=== PATIENT | female | born 1970 | race Caucasian/White ===

== ENCOUNTER 2021-10-10 16:55 | Inpatient (IN) | payer MEDICAID ==
--- NOTE | 2021-10-11 07:45 | History and Physical Report ---
GP History & Physical - History of Present Illness Date of admission: 10/10/21 Date of Examination: 10/11/21 Reason for Admission: Danger to self, Danger to others Chief Complaint: Suicvidal ideation History of Present Illness: The patient is a 51 year old female with history of Schizoaffective, and PTSD who was admitted from [facility] on 1012 for for suicidal ideation/ attempt via cutting. In my interview with the patient, she is calm and oriented x 3 and withdrawn. The patient states she was feeling suicidal " I was told I was lying so I pulled out the knife and cut myself." She endorses depression stating " I don't want to live " and reports plan of overdosing on pills; she also reports feeling homicidal " because I was thrown out of the home. " The patient reports having auditory and visual hallucination " voices telling me to kill myself, cut and I'm seeing shadows." PAST PSYCHIATRIC HISTORY Diagnoses: Schizoaffective, PTSD Suicide attempts or Self-harm behavior: Yes/ cutter Prior psychiatric hospitalizations: Yes Substance Abuse history: Denies Previous psychiatric medications tried: so many Outpatient treatment: Yes PAST MEDICAL HISTORY: unknown Family Psychiatric History: None reported or documented SOCIAL HISTORY Marital Status: Single Living Arrangements:Lives in a care home Employment Status: Disabled Access to guns/weapons:Denies Education: 2 year college History of Abuse: Denies Legal History: Unknown REVIEW OF SYSTEMS Constitutional: Negative for weight loss ENT: Negative for stridor Respiratory: Negative for cough or hemoptysis All other systems reviewed and are negative MENTAL STATUS EXAMINATION General Appearance and Behavior: Age appropriate, good hygiene, wearing appropriate clothes, good eye contact, cooperative with questioning Cooperation: Participating/engaged Psychomotor Behavior: unremarkable and within normal limits Mood:"Depressed" Affect and affective range: congruent with mood Thought Process:goal directed Thought Content: Suicidal Speech: Normal volume, Regular rate and rhythm. Intellectual Functioning: Average Suicidal Ideation: Yes Homicidal Ideation: Yes Hallucinations: Auditory/Visual Delusions: None elicited Impulse Control: Limited Insight and Judgment: limited insight and poor judgment Memory: Normal Attention: Normal Orientation: Alert, oriented. Assessment and Plan (1)Schizoaffective disorder Treatment Plan Patient admitted for inpatient psychiatric evaluation, medication adjustment and close monitoring The patient's behavior, mood, sleep and appetite will be closely monitored. Patient enrolled in individual and group therapeutic sessions and encouraged to attend. Patient provided with a safe and structured environment. Patient's physical health needs will be addressed by the Hospitalist. Hospitalist Consulted Labs including CBC, CMP, Lipid profile and Hemoglobin A1C levels ordered for baseline reference Social Assessment will be completed and the Radio Division Officer will work with patient and family to ensure a suitable and safe disposition Medication adjustment will be made as clinically indicated Continue home medications Usual Wellness Denominational/Preservation: - Start Trazodone 50 mg po QHS & 50 mg po QHS PRN between 10 PM & 2 AM for insomnia - Start Melatonin 5 mg po QHS to promote circadian rhythm The patient agreed on the treatment plan, understood the risk, benefit, alternative treatment, potential consequence of no treatment, and gave informed consent. Estimated days:7 Post hospital care: primary care provider, psychiatric provider Case staffed with Dr. Sandra Legal Status: Involuntary Reaction to Hospitalization: Accepting Medications and Allergies Allergies Allergy/AdvReac Type Severity Reaction Status Date / Time hydromorphone [From Dilaudid] AdvReac Unknown Verified 10/10/21 17:32 lorazepam [From Ativan] AdvReac Unknown Verified 10/10/21 17:32 morphine AdvReac Unknown Verified 10/10/21 17:32 Home Medications Medication Instructions Recorded Confirmed Last Taken Type ARIPiprazole [Abilify Maintena] 400 mg IM QMONTH 10/11/21 10/11/21 Unknown History ARIPiprazole [Aripiprazole] 10 mg PO PC 10/11/21 10/11/21 Unknown History AtorvaSTATin [Lipitor] 10 mg PO QHS 10/11/21 10/11/21 Unknown History Benztropine [Cogentin] 1 mg PO BID 10/11/21 10/11/21 Unknown History Cannabidiol (Cbd) [Epidiolex] 6 ml PO BID 10/11/21 10/11/21 Unknown History Cetirizine HCl [Allergy] 10 mg PO DAILY 10/11/21 10/11/21 Unknown History Cyanocobalamin/Folic Acid [Vitamin 1,000 mcg PO DAILY 10/11/21 10/11/21 Unknown History [id number] Acid Tablet] DULoxetine [Cymbalta] 30 mg PO BID 10/11/21 10/11/21 Unknown History Ergocalciferol [Vitamin D2] 1 cap PO QWEEK 10/11/21 10/11/21 Unknown History Fluticasone/Salmeterol [Advair 1 puff IH BID 10/11/21 10/11/21 Unknown History Diskus 250-50 mcg] Gabapentin 300 mg PO TID 10/11/21 10/11/21 Unknown History Lacosamide [Vimpat] 20 mg PO BID 10/11/21 10/11/21 Unknown History Metformin HCl [metFORMIN] 1,000 mg PO BID 10/11/21 10/11/21 Unknown History Multivitamin [Multiple Vitamins] 1 each PO DAILY 10/11/21 10/11/21 Unknown History cloZAPine [Clozapine] 50 mg PO HS 10/11/21 10/11/21 Unknown History lamoTRIgine [Lamictal] 50 mg PO BID 10/11/21 10/11/21 Unknown History levETIRAcetam [Keppra TAB] 2 tab PO BID 10/11/21 10/11/21 Unknown History lisinopriL [Lisinopril] 10 mg PO DAILY 10/11/21 10/11/21 Unknown History traZODone [Desyrel] 100 mg PO QHS 10/11/21 10/11/21 Unknown History Results - Results Labs/Vitals: Last Vital Signs Temp 98.2 F 10/10/21 20:00 Pulse 86 10/10/21 20:00 Resp 13 10/10/21 20:00 BP 87/57 10/10/21 20:00 Pulse Ox 97 10/10/21 20:00 Physical Examination - Constitutional Vitals: Vital Signs Temp Pulse Resp BP Pulse Ox 98.2 F 86 13 87/57 97 10/10/21 20:00 10/10/21 20:00 10/10/21 20:00 10/10/21 20:00 10/10/21 20:00 Temperature -Last 24 Hours Temperature 98.2 F Mental Status Exam - Vital signs Last Vital Signs Temp 98.2 F 10/10/21 20:00 Pulse 86 10/10/21 20:00 Resp 13 10/10/21 20:00 BP 87/57 10/10/21 20:00 Pulse Ox 97 10/10/21 20:00 Physician Certification - Certification Statement Physician Certification Statement: This is an acknowledgement statement that MAILE JONES is a 51 year old F who requires inpatient psychiatric admission for treatment which could reasonably be expected to improve the patient's condition for Estimated period of time patient will need to remain in the hospital: [ ] Plan for post-hospital care: [ ]
[2021-10-11] MEDS ORDERED: LACOSAMIDE 10 MG/ML PO SCH (10:00)
[2021-10-11] MEDS ORDERED: FOLIC ACID PO SCH (10:00)
[2021-10-11] MEDS ORDERED: NON-FORMULARY EACH (Multivitamin [Multiple Vitamins] 1 EACH Tablet) PO SCH (10:00)
[2021-10-11] MEDS ORDERED: NON-FORMULARY EACH (Levetiracetam [Keppra Tab] 1,000 MG Tablet) PO SCH (10:00)
[2021-10-11] MEDS ORDERED: CANNABIDIOL 100 MG/ML PO SCH (10:00)
[2021-10-11] MEDS ORDERED: CYANOCOBALAMIN PO SCH (10:00)
[2021-10-11] MEDS ORDERED: [UNRECOGNIZED DRUG - OTHER] PO SCH (10:00)
[2021-10-11] MEDS ORDERED: NON-FORMULARY EACH (Metformin Hcl [Metformin] 1,000 MG Tablet) PO SCH (10:00)
[2021-10-11] MEDS ORDERED: LISINOPRIL 10 MG TAB PO SCH (11:00)
[2021-10-11] MEDS ORDERED: B COMPLEX W/VITAMIN C TAB PO SCH (11:00)
[2021-10-11] MEDS: CETIRIZINE 10 MG TAB PO SCH (11:11)
[2021-10-11] MEDS: DULoxetine 30 MG CAP PO SCH ×2 (11:11→21:24)
[2021-10-11] MEDS: metFORMIN 500 MG TAB PO SCH ×2 (11:11→17:20)
[2021-10-11] MEDS: levETIRAcetam 500 MG TAB PO SCH ×2 (11:11→21:24)
[2021-10-11] MEDS: BENZTROPINE 1 MG TAB PO SCH ×2 (11:11→21:24)
[2021-10-11] MEDS: lamoTRIgine 25 MG TAB PO SCH ×2 (11:11→21:23)
[2021-10-11] MEDS: CYANOCOBALAMIN (VIT B-12) 1000 MCG TAB PO SCH (11:11)
[2021-10-11] MEDS: MULTIVITAMINS ,THERAPEUTIC TAB PO SCH (11:11)
[2021-10-11] MEDS ORDERED: FLU VACC QUAD 2021-22(6MOS UP)/PF 60 MCG/0.5 ML SYRINGE IM ONE (12:00)
[2021-10-11] MEDS: ARIPiprazole 10 MG TAB PO SCH ×3 (13:27→17:20)
[2021-10-11] MEDS: hydrOXYzine PAMOATE 25 MG CAP PO PRN (13:38)
[2021-10-11] MEDS ORDERED: GABAPENTIN 300 MG CAP PO SCH (14:00)
--- NOTE | 2021-10-11 15:22 | Consultation ---
History of Present Illness - Reason for Consult Consult date: 10/11/21 Medical management - History of Present Illness Patient is a 51-year-old female with past medical history of schizophrenia, PTSD, depression seizure disorder, vitamin D deficiency, vitamin B12 deficiency, asthma, hyperlipidemia, and noninsulin-dependent diabetes who presented for psychiatric inpatient evaluation. Medicine was consulted for medical management. Past History Past Medical History: diabetes, hypertension, hyperlipidemia, seizures, other (Asthma, vitamin B12 deficiency, vitamin D deficiency, asthma, hypertension, hyperlipidemia, schizophrenia, PTSD, depression) Social history: Lives alone (Lives in snf), full code Medications and Allergies Allergies Allergy/AdvReac Type Severity Reaction Status Date / Time hydromorphone [From Dilaudid] AdvReac Unknown Verified 10/10/21 17:32 lorazepam [From Ativan] AdvReac Unknown Verified 10/10/21 17:32 morphine AdvReac Unknown Verified 10/10/21 17:32 Home Medications Medication Instructions Recorded Confirmed Last Taken Type ARIPiprazole [Abilify Maintena] 400 mg IM QMONTH 10/11/21 10/11/21 Unknown History ARIPiprazole [Aripiprazole] 10 mg PO PC 10/11/21 10/11/21 Unknown History AtorvaSTATin [Lipitor] 10 mg PO QHS 10/11/21 10/11/21 Unknown History Benztropine [Cogentin] 1 mg PO BID 10/11/21 10/11/21 Unknown History Cannabidiol (Cbd) [Epidiolex] 6 ml PO BID 10/11/21 10/11/21 Unknown History Cetirizine HCl [Allergy] 10 mg PO DAILY 10/11/21 10/11/21 Unknown History Cyanocobalamin/Folic Acid [Vitamin 1,000 mcg PO DAILY 10/11/21 10/11/21 Unknown History [id number] Acid Tablet] DULoxetine [Cymbalta] 30 mg PO BID 10/11/21 10/11/21 Unknown History Ergocalciferol [Vitamin D2] 1 cap PO QWEEK 10/11/21 10/11/21 Unknown History Fluticasone/Salmeterol [Advair 1 puff IH BID 10/11/21 10/11/21 Unknown History Diskus 250-50 mcg] Gabapentin 300 mg PO TID 10/11/21 10/11/21 Unknown History Lacosamide [Vimpat] 20 mg PO BID 10/11/21 10/11/21 Unknown History Metformin HCl [metFORMIN] 1,000 mg PO BID 10/11/21 10/11/21 Unknown History Multivitamin [Multiple Vitamins] 1 each PO DAILY 10/11/21 10/11/21 Unknown History cloZAPine [Clozapine] 50 mg PO HS 10/11/21 10/11/21 Unknown History lamoTRIgine [Lamictal] 50 mg PO BID 10/11/21 10/11/21 Unknown History levETIRAcetam [Keppra TAB] 2 tab PO BID 10/11/21 10/11/21 Unknown History lisinopriL [Lisinopril] 10 mg PO DAILY 10/11/21 10/11/21 Unknown History traZODone [Desyrel] 100 mg PO QHS 10/11/21 10/11/21 Unknown History Active Meds: Active Medications Aripiprazole (Aripiprazole 10 Mg Tab) 10 mg PO [facility] Last Admin: 10/11/21 13:27 Dose: 10 mg Documented by: Atorvastatin Calcium (Atorvastatin 10 Mg Tab) 10 mg PO QHS [facility] Benztropine Mesylate (Benztropine 1 Mg Tab) 1 mg PO BID [facility] Last Admin: 10/11/21 11:11 Dose: 1 mg Documented by: Cetirizine HCl (Cetirizine 10 Mg Tab) 10 mg PO DAILY [facility] Last Admin: 10/11/21 11:11 Dose: 10 mg Documented by: Cyanocobalamin (Cyanocobalamin (Vit B-12) 1000 Mcg Tab) 1,000 mcg PO QDAY [facility] Last Admin: 10/11/21 11:11 Dose: 1,000 mcg Documented by: Duloxetine HCl (Duloxetine 30 Mg Cap) 30 mg PO BID [facility] Last Admin: 10/11/21 11:11 Dose: 30 mg Documented by: Ergocalciferol (Ergocalciferol (Vit D2) 50,000 Unit Cap) unit PO QWEEK [facility] Hydroxyzine Pamoate (Hydroxyzine Pamoate 50 Mg Cap) 50 mg PO Q6H PRN PRN Reason: Anxiety Last Admin: 10/11/21 13:38 Dose: 50 mg Documented by: Hydroxyzine Pamoate (Hydroxyzine Pamoate 25 Mg Cap) 25 mg PO Q6H PRN PRN Reason: Anxiety Last Admin: 10/11/21 13:38 Dose: 25 mg Documented by: Lamotrigine (Lamotrigine 25 Mg Tab) 50 mg PO BID [facility] Last Admin: 10/11/21 11:11 Dose: 50 mg Documented by: Levetiracetam (Levetiracetam 500 Mg Tab) 1,000 mg PO BID [facility] Last Admin: 10/11/21 11:11 Dose: 1,000 mg Documented by: Metformin HCl (Metformin 500 Mg Tab) 1,000 mg PO BIDDIAB [facility] Last Admin: 10/11/21 11:11 Dose: 1,000 mg Documented by: Multivitamins (Multivitamins ,Therapeutic Tab) 1 each PO DAILY [facility] Last Admin: 10/11/21 11:11 Dose: 1 each Documented by: Trazodone HCl (Trazodone 100 Mg Tab) 100 mg PO QHS [facility] Review of Systems ROS unobtainable: due to mental status All systems: negative Exam - Constitutional Vitals: Temp Pulse Resp BP Pulse Ox 98.2 F 86 13 87/57 97 10/10/21 20:00 10/10/21 20:00 10/10/21 20:00 10/10/21 20:00 10/10/21 20:00 General appearance: Present: no acute distress, well-nourished - EENT Eyes: Present: PERRL, EOM intact ENT: hearing intact, dentition normal - Neck Neck: Present: supple, normal ROM - Respiratory Respiratory effort: normal Respiratory: bilateral: CTA - Cardiovascular Rhythm: regular Heart Sounds: Present: S1 & S2 - Extremities Extremities: no ischemia, pulses intact, pulses symmetrical, No edema, normal temperature, normal color, Full ROM Peripheral Pulses: within normal limits - Abdominal General gastrointestinal: Present: soft, non-tender, non-distended, normal bowel sounds Female genitourinary: Present: deferred - Rectal Rectal Exam: deferred - Integumentary Integumentary: Present: clear, warm, dry - Musculoskeletal Musculoskeletal: strength equal bilaterally - Psychiatric Psychiatric: cooperative - Neurologic Neurologic: CNII-XII intact, moves all extremities - Allied Health Allied health notes reviewed: nursing Assessment and Plan #Suicidal ideation #Suicide attempt #PTSD #Depression -Management per primary #Hypertension -Restart home lisinopril 10 mg daily #Seizure disorder -Restart home lacosamide 20 mg twice daily, lamotrigine 50 mg twice daily, Keppra 2 tabs twice daily #Hyperlipidemia -Restart home Lipitor 10 mg daily #Asthma -Restart home Advair 2 five 0-501 puff twice daily #[id number] diabetes type 2 -Restart home Metformin 1000 mg twice daily -Blood glucose goal [id number] while inpatient -Continue to monitor #Vitamin B12 deficiency -Restart home vitamin B12 1000 mg daily #Vitamin D deficiency -restart home ergocalciferol 1 cap weekly #Seasonal allergies #Sinusitis -Restart home cetirizine 10 mg daily Thank you for this interesting consult. We will continue to follow.
[2021-10-11] MEDS: traZODone 100 MG TAB PO SCH (21:23)
--- NOTE | 2021-10-12 08:32 | Progress Note ---
Subjective Date of service: 10/12/21 Subjective Comment: The patient is seen today, she continues to present with depressive mood. She endorses suicidal/homicidal ideation and auditory/visual hallucinations. REVIEW OF SYSTEMS Constitutional: Negative for weight loss ENT: Negative for stridor Respiratory: Negative for cough or hemoptysis All other systems reviewed and are negative MENTAL STATUS EXAMINATION General Appearance and Behavior: Age appropriate, good hygiene, wearing appropriate clothes, good eye contact, cooperative with questioning Cooperation: Participating/engaged Psychomotor Behavior: unremarkable and within normal limits Mood:"Depressed" Affect and affective range: congruent with mood Thought Process:goal directed Thought Content: Suicidal Speech: Normal volume, Regular rate and rhythm. Intellectual Functioning: Average Suicidal Ideation: Yes Homicidal Ideation: Yes Hallucinations: Auditory/Visual Delusions: None elicited Impulse Control: Limited Insight and Judgment: limited insight and poor judgment Memory: Normal Attention: Normal Orientation: Alert, oriented. Assessment and Plan (1)Schizoaffective disorder Treatment Plan Patient admitted for inpatient psychiatric evaluation, medication adjustment and close monitoring The patient's behavior, mood, sleep and appetite will be closely monitored. Patient enrolled in individual and group therapeutic sessions and encouraged to attend. Patient provided with a safe and structured environment. Patient's physical health needs will be addressed by the Hospitalist. Hospitalist Consulted Labs including CBC, CMP, Lipid profile and Hemoglobin A1C levels ordered for baseline reference Social Assessment will be completed and the Pipe And Test Supervisor will work with patient and family to ensure a suitable and safe disposition Medication adjustment will be made as clinically indicated Continue home medications Usual Wellness Tenriism/Preservation: - Start Trazodone 50 mg po QHS & 50 mg po QHS PRN between 10 PM & 2 AM for insomnia - Start Melatonin 5 mg po QHS to promote circadian rhythm The patient agreed on the treatment plan, understood the risk, benefit, alternative treatment, potential consequence of no treatment, and gave informed consent. Estimated days:6 Post hospital care: primary care provider, psychiatric provider Case staffed with Dr. Sandra Legal Status: Involuntary Reaction to Hospitalization: Accepting Medications and Allergies Medications and Allergies Allergies Allergy/AdvReac Type Severity Reaction Status Date / Time hydromorphone [From Dilaudid] AdvReac Unknown Verified 10/10/21 17:32 lorazepam [From Ativan] AdvReac Unknown Verified 10/10/21 17:32 morphine AdvReac Unknown Verified 10/10/21 17:32 Home Medications Medication Instructions Recorded Confirmed Last Taken Type ARIPiprazole [Abilify Maintena] 400 mg IM QMONTH 10/11/21 10/11/21 Unknown History ARIPiprazole [Aripiprazole] 10 mg PO PC 10/11/21 10/11/21 Unknown History AtorvaSTATin [Lipitor] 10 mg PO QHS 10/11/21 10/11/21 Unknown History Benztropine [Cogentin] 1 mg PO BID 10/11/21 10/11/21 Unknown History Cannabidiol (Cbd) [Epidiolex] 6 ml PO BID 10/11/21 10/11/21 Unknown History Cetirizine HCl [Allergy] 10 mg PO DAILY 10/11/21 10/11/21 Unknown History Cyanocobalamin/Folic Acid [Vitamin 1,000 mcg PO DAILY 10/11/21 10/11/21 Unknown History [id number] Acid Tablet] DULoxetine [Cymbalta] 30 mg PO BID 10/11/21 10/11/21 Unknown History Ergocalciferol [Vitamin D2] 1 cap PO QWEEK 10/11/21 10/11/21 Unknown History Fluticasone/Salmeterol [Advair 1 puff IH BID 10/11/21 10/11/21 Unknown History Diskus 250-50 mcg] Gabapentin 300 mg PO TID 10/11/21 10/11/21 Unknown History Lacosamide [Vimpat] 20 mg PO BID 10/11/21 10/11/21 Unknown History Metformin HCl [metFORMIN] 1,000 mg PO BID 10/11/21 10/11/21 Unknown History Multivitamin [Multiple Vitamins] 1 each PO DAILY 10/11/21 10/11/21 Unknown History cloZAPine [Clozapine] 50 mg PO HS 10/11/21 10/11/21 Unknown History lamoTRIgine [Lamictal] 50 mg PO BID 10/11/21 10/11/21 Unknown History levETIRAcetam [Keppra TAB] 2 tab PO BID 10/11/21 10/11/21 Unknown History lisinopriL [Lisinopril] 10 mg PO DAILY 10/11/21 10/11/21 Unknown History traZODone [Desyrel] 100 mg PO QHS 10/11/21 10/11/21 Unknown History Active Meds: Active Medications Aripiprazole (Aripiprazole 10 Mg Tab) 10 mg PO PC [facility] Last Admin: 10/11/21 17:20 Dose: 10 mg Documented by: Atorvastatin Calcium (Atorvastatin 10 Mg Tab) 10 mg PO QHS [facility] Last Admin: 10/11/21 21:23 Dose: 10 mg Documented by: Benztropine Mesylate (Benztropine 1 Mg Tab) 1 mg PO BID [facility] Last Admin: 10/11/21 21:24 Dose: 1 mg Documented by: Cetirizine HCl (Cetirizine 10 Mg Tab) 10 mg PO DAILY [facility] Last Admin: 10/11/21 11:11 Dose: 10 mg Documented by: Cyanocobalamin (Cyanocobalamin (Vit B-12) 1000 Mcg Tab) 1,000 mcg PO QDAY [facility] Last Admin: 10/11/21 11:11 Dose: 1,000 mcg Documented by: Duloxetine HCl (Duloxetine 30 Mg Cap) 30 mg PO BID [facility] Last Admin: 10/11/21 21:24 Dose: 30 mg Documented by: Ergocalciferol (Ergocalciferol (Vit D2) 50,000 Unit Cap) unit PO QWEEK [facility] Hydroxyzine Pamoate (Hydroxyzine Pamoate 50 Mg Cap) 50 mg PO Q6H PRN PRN Reason: Anxiety Last Admin: 10/11/21 13:38 Dose: 50 mg Documented by: Hydroxyzine Pamoate (Hydroxyzine Pamoate 25 Mg Cap) 25 mg PO Q6H PRN PRN Reason: Anxiety Last Admin: 10/11/21 13:38 Dose: 25 mg Documented by: Lamotrigine (Lamotrigine 25 Mg Tab) 50 mg PO BID [facility] Last Admin: 10/11/21 21:23 Dose: 50 mg Documented by: Levetiracetam (Levetiracetam 500 Mg Tab) 1,000 mg PO BID [facility] Last Admin: 10/11/21 21:24 Dose: 1,000 mg Documented by: Metformin HCl (Metformin 500 Mg Tab) 1,000 mg PO BIDDIAB [facility] Last Admin: 10/11/21 17:20 Dose: 1,000 mg Documented by: Multivitamins (Multivitamins ,Therapeutic Tab) 1 each PO DAILY [facility] Last Admin: 10/11/21 11:11 Dose: 1 each Documented by: Trazodone HCl (Trazodone 100 Mg Tab) 100 mg PO QHS [facility] Last Admin: 10/11/21 21:23 Dose: 100 mg Documented by: Results - Results Labs/Vitals: Laboratory Last Values POC Glucose 90 mg/dL (70-105) 10/12/21 06:22 Last Vital Signs Temp 98.1 F 10/11/21 21:12 Pulse 79 10/11/21 21:12 Resp 16 10/11/21 21:12 BP 98/64 10/11/21 21:12 Pulse Ox 97 10/11/21 21:14
[2021-10-12 09:24] LABS: Hematocrit 38.1 % (30.3-42.9); Hemoglobin 12.2 gm/dl (10.1-14.3); Mean Corpuscular HGB Conc 32 % (30-34); Mean Corpuscular Volume 86 fl (79-97); Platelet Count 172 K/mm3 (140-440); Red Blood Count 4.41 M/mm3 (3.65-5.03); Red Cell Distribution Width 14.4 % (13.2-15.2)
[2021-10-12] MEDS: DULoxetine 30 MG CAP PO SCH ×2 (09:32→21:44)
[2021-10-12] MEDS: lamoTRIgine 25 MG TAB PO SCH ×2 (09:32→21:44)
[2021-10-12] MEDS: MULTIVITAMINS ,THERAPEUTIC TAB PO SCH (09:32)
[2021-10-12] MEDS: BENZTROPINE 1 MG TAB PO SCH ×2 (09:32→21:43)
[2021-10-12] MEDS: CYANOCOBALAMIN (VIT B-12) 1000 MCG TAB PO SCH (09:32)
[2021-10-12] MEDS: levETIRAcetam 500 MG TAB PO SCH ×2 (09:32→21:44)
[2021-10-12] MEDS: ARIPiprazole 10 MG TAB PO SCH ×3 (09:32→17:00)
[2021-10-12] MEDS: CETIRIZINE 10 MG TAB PO SCH (09:32)
[2021-10-12] MEDS: metFORMIN 500 MG TAB PO SCH ×2 (09:32→16:55)
[2021-10-12] MEDS: hydrOXYzine PAMOATE 25 MG CAP PO PRN ×2 (09:33→23:33)
[2021-10-12 09:45] LABS: Alanine Aminotransferase 14 units/L (7-56); BUN/Creatinine Ratio 25; Blood Urea Nitrogen 20 mg/dL (7-17); Chol/HDL Ratio 2.85 %; HDL Cholesterol 67 mg/dL (40-59); Hemolysis Index 6; LDL Cholesterol,Direct 108 mg/dL (50-130)
--- NOTE | 2021-10-12 15:57 | Progress Note ---
Assessment and Plan Assessment and plan: Patient is a 51-year-old female with past medical history of schizophrenia, PTSD, depression seizure disorder, vitamin D deficiency, vitamin B12 deficiency, asthma, hyperlipidemia, and noninsulin-dependent diabetes who presented for psychiatric inpatient evaluation. Medicine was consulted for medical management. #Suicidal ideation #Suicide attempt #PTSD #Depression -Management per primary #Hypertension -Continue home lisinopril 10 mg daily #Seizure disorder -Continue home lacosamide 20 mg twice daily, lamotrigine 50 mg twice daily, Keppra 2 tabs twice daily #Hyperlipidemia -R continue home Lipitor 10 mg daily #Asthma -Continue home Advair 2 five 0-501 puff twice daily #Dif-nxyscjq-cmblvxfeb diabetes type 2 -Continue home Metformin 1000 mg twice daily -Blood glucose goal [id number] while inpatient -Continue to monitor #Vitamin B12 deficiency -Continue home vitamin B12 1000 mg daily #Vitamin D deficiency -Continue home ergocalciferol 1 cap weekly #Seasonal allergies #Sinusitis -Continue home cetirizine 10 mg daily #Advanced care planning -Disease education conducted, care plan discussed, diagnoses discussed, prognosis discussed, and patient acknowledges understanding with care plan -time: +20 minutes We will continue to follow. Disposition Plan: Continue medical management Total Time Spent with Patient (Minutes): 25 minutes History Interval history: No acute events overnight. Hospitalist Physical - Constitutional Vitals: Temp Pulse Resp BP Pulse Ox 98.1 F 79 16 98/64 97 10/11/21 21:12 10/11/21 21:12 10/11/21 21:12 10/11/21 21:12 10/11/21 21:14 General appearance: Present: no acute distress, well-nourished - EENT Eyes: Present: PERRL ENT: hearing intact, clear oral mucosa - Neck Neck: Present: supple, normal ROM - Respiratory Respiratory effort: normal Respiratory: bilateral: CTA - Cardiovascular Rhythm: regular - Extremities Extremities: no ischemia, pulses intact, pulses symmetrical, No edema, normal temperature, normal color Peripheral Pulses: within normal limits - Abdominal General gastrointestinal: soft, non-tender, non-distended, normal bowel sounds - Integumentary Integumentary: Present: clear, warm, dry - Psychiatric Psychiatric: cooperative - Neurologic Neurologic: CNII-XII intact, moves all extremities Results - Labs CBC & Chem 7: 10/12/21 08:52 10/12/21 08:52 Labs: Laboratory Last Values WBC 3.7 K/mm3 (4.5-11.0) L 10/12/21 08:52 RBC 4.41 M/mm3 (3.65-5.03) 10/12/21 08:52 Hgb 12.2 gm/dl (10.1-14.3) 10/12/21 08:52 Hct 38.1 % (30.3-42.9) 10/12/21 08:52 MCV 86 fl (79-97) 10/12/21 08:52 MCH 28 pg (28-32) 10/12/21 08:52 MCHC 32 % (30-34) 10/12/21 08:52 RDW 14.4 % (13.2-15.2) 10/12/21 08:52 Plt Count 172 K/mm3 (140-440) 10/12/21 08:52 Sodium 138 mmol/L (137-145) 10/12/21 08:52 Potassium 4.1 mmol/L (3.6-5.0) 10/12/21 08:52 Chloride 98.3 mmol/L (98-107) 10/12/21 08:52 Carbon Dioxide 24 mmol/L (22-30) 10/12/21 08:52 Anion Gap 20 mmol/L 10/12/21 08:52 BUN 20 mg/dL (7-17) H 10/12/21 08:52 Creatinine 0.8 mg/dL (0.6-1.2) 10/12/21 08:52 Estimated GFR > 60 ml/min 10/12/21 08:52 BUN/Creatinine Ratio 25 % 10/12/21 08:52 Glucose 140 mg/dL (65-100) H 10/12/21 08:52 POC Glucose 90 mg/dL (70-105) 10/12/21 06:22 Calcium 9.0 mg/dL (8.4-10.2) 10/12/21 08:52 Total Bilirubin 0.30 mg/dL (0.1-1.2) 10/12/21 08:52 AST 13 units/L (5-40) 10/12/21 08:52 ALT 14 units/L (7-56) 10/12/21 08:52 Alkaline Phosphatase 114 units/L (35-129) 10/12/21 08:52 Total Protein 7.4 g/dL (6.3-8.2) 10/12/21 08:52 Albumin 4.0 g/dL (3.9-5) 10/12/21 08:52 Albumin/Globulin Ratio 1.2 % 10/12/21 08:52 Triglycerides 101 mg/dL (2-149) 10/12/21 08:52 Cholesterol 191 mg/dL (50-199) 10/12/21 08:52 LDL Cholesterol Direct 108 mg/dL (50-130) 10/12/21 08:52 HDL Cholesterol 67 mg/dL (40-59) H 10/12/21 08:52 Cholesterol/HDL Ratio 2.85 % 10/12/21 08:52 TSH 1.580 mlU/mL (0.270-4.200) 10/12/21 08:52 TSH 1.610 mlU/mL (0.270-4.200) 10/12/21 08:52 Forman/IV: Voiding Method Toilet Active Medications - Current Medications Current Medications: Generic Name Dose Route Start Last Admin Trade Name Freq PRN Reason Stop Dose Admin Aripiprazole 10 mg 10/11/21 10:00 10/12/21 13:46 Aripiprazole 10 Mg Tab PO 10 mg PC ANA Administration Atorvastatin Calcium 10 mg 10/11/21 22:00 10/11/21 21:23 Atorvastatin 10 Mg Tab PO 10 mg QHS ANA Administration Benztropine Mesylate 1 mg 10/11/21 10:00 10/12/21 09:32 Benztropine 1 Mg Tab PO 1 mg BID ANA Administration Cetirizine HCl 10 mg 10/11/21 11:00 10/12/21 09:32 Cetirizine 10 Mg Tab PO 10 mg DAILY ANA Administration Cyanocobalamin 1,000 mcg 10/11/21 11:00 10/12/21 09:32 Cyanocobalamin (Vit B-12) 1000 Mcg Tab PO 1,000 mcg QDAY ANA Administration Duloxetine HCl 30 mg 10/11/21 11:00 10/12/21 09:32 Duloxetine 30 Mg Cap PO 30 mg BID ANA Administration Ergocalciferol unit 10/11/21 10:00 Ergocalciferol (Vit D2) 50,000 Unit Cap PO QWEEK [facility] Hydroxyzine Pamoate 50 mg 10/11/21 13:15 10/12/21 09:33 Hydroxyzine Pamoate 50 Mg Cap PO 50 mg Q6H PRN Administration Anxiety Hydroxyzine Pamoate 25 mg 10/11/21 13:15 10/12/21 09:33 Hydroxyzine Pamoate 25 Mg Cap PO 25 mg Q6H PRN Administration Anxiety Lamotrigine 50 mg 10/11/21 11:00 10/12/21 09:32 Lamotrigine 25 Mg Tab PO 50 mg BID ANA Administration Levetiracetam 1,000 mg 10/11/21 11:00 10/12/21 09:32 Levetiracetam 500 Mg Tab PO 1,000 mg BID ANA Administration Metformin HCl 1,000 mg 10/11/21 11:30 10/12/21 09:32 Metformin 500 Mg Tab PO 1,000 mg BIDDIAB ANA Administration Multivitamins 1 each 10/11/21 11:00 10/12/21 09:32 Multivitamins ,Therapeutic Tab PO 1 each DAILY ANA Administration Trazodone HCl 100 mg 10/11/21 22:00 10/11/21 21:23 Trazodone 100 Mg Tab PO 100 mg QHS ANA Administration
[2021-10-12] MEDS: traZODone 100 MG TAB PO SCH (21:44)
[2021-10-13] MEDS: ARIPiprazole 10 MG TAB PO SCH (09:21)
[2021-10-13] MEDS: CYANOCOBALAMIN (VIT B-12) 1000 MCG TAB PO SCH (09:21)
[2021-10-13] MEDS: levETIRAcetam 500 MG TAB PO SCH ×2 (09:21→22:43)
[2021-10-13] MEDS: CETIRIZINE 10 MG TAB PO SCH (09:21)
[2021-10-13] MEDS: lamoTRIgine 25 MG TAB PO SCH ×2 (09:22→22:42)
[2021-10-13] MEDS: DULoxetine 30 MG CAP PO SCH ×2 (09:22→22:43)
[2021-10-13] MEDS: BENZTROPINE 1 MG TAB PO SCH ×2 (09:22→22:43)
[2021-10-13] MEDS: metFORMIN 500 MG TAB PO SCH (09:46)
[2021-10-13] MEDS: MULTIVITAMINS ,THERAPEUTIC TAB PO SCH (09:46)
--- NOTE | 2021-10-13 11:52 | Progress Note ---
Subjective Date of service: 10/13/21 Principal diagnosis: MDD Subjective Comment: The patient was seen today. She is irritable. She says she did not get all of her medications this morning. She is asking the speak to the SW and says she is pissed off. The patient has old superficial cuts to her left forearm. She says she cuts when she gets anxious. She says she's hearing "mumbo jurufinoo" but can't make it out. She initiall denies SI/HI. She then says "yea I am suicidal and I'll do whatever I can do." The patient says "I'm pissed about my meds." REVIEW OF SYSTEMS Constitutional: Negative for weight loss ENT: Negative for stridor Respiratory: Negative for cough or hemoptysis All other systems reviewed and are negative MENTAL STATUS EXAMINATION General Appearance and Behavior: Age appropriate, good hygiene, wearing appropriate clothes, good eye contact, cooperative with questioning Cooperation: Participating/engaged Psychomotor Behavior: unremarkable and within normal limits Mood: upset Affect and affective range: congruent with mood Thought Process:goal directed Thought Content: Suicidal Speech: Normal volume, Regular rate and rhythm. Intellectual Functioning: Average Suicidal Ideation: Denies Homicidal Ideation: Denies Hallucinations: Auditory Delusions: None elicited Impulse Control: Limited Insight and Judgment: limited insight and poor judgment Memory: Normal Attention: Normal Orientation: Alert, oriented. Assessment and Plan (1)Schizoaffective disorder Treatment Plan Patient admitted for inpatient psychiatric evaluation, medication adjustment and close monitoring The patient's behavior, mood, sleep and appetite will be closely monitored. Patient enrolled in individual and group therapeutic sessions and encouraged to attend. Patient provided with a safe and structured environment. Patient's physical health needs will be addressed by the Hospitalist. Hospitalist Consulted Labs including CBC, CMP, Lipid profile and Hemoglobin A1C levels ordered for [facility] reference Social Assessment will be completed and the [facility] will work with patient and family to ensure a suitable and safe disposition Medication adjustment will be made as clinically indicated Continue home medications Usual Wellness [facility]/Preservation: - Start Trazodone 50 mg po QHS & 50 mg po QHS PRN between 10 PM & 2 AM for insomnia - Start Melatonin 5 mg po QHS to promote circadian rhythm The patient agreed on the treatment plan, understood the risk, benefit, alternative treatment, potential consequence of no treatment, and gave informed consent. Estimated days:6 Post hospital care: primary care provider, psychiatric provider Case staffed with Dr. Sandra Medications and Allergies Allergies Allergy/AdvReac Type Severity Reaction Status Date / Time hydromorphone [From Dilaudid] AdvReac Unknown Verified 10/10/21 17:32 lorazepam [From Ativan] AdvReac Unknown Verified 10/10/21 17:32 morphine AdvReac Unknown Verified 10/10/21 17:32 Home Medications Medication Instructions Recorded Confirmed Last Taken Type ARIPiprazole [Abilify Maintena] 400 mg IM QMONTH 10/11/21 10/11/21 Unknown History ARIPiprazole [Aripiprazole] 10 mg PO PC 10/11/21 10/11/21 Unknown History AtorvaSTATin [Lipitor] 10 mg PO QHS 10/11/21 10/11/21 Unknown History Benztropine [Cogentin] 1 mg PO BID 10/11/21 10/11/21 Unknown History Cannabidiol (Cbd) [Epidiolex] 6 ml PO BID 10/11/21 10/11/21 Unknown History Cetirizine HCl [Allergy] 10 mg PO DAILY 10/11/21 10/11/21 Unknown History Cyanocobalamin/Folic Acid [Vitamin 1,000 mcg PO DAILY 10/11/21 10/11/21 Unknown History [id number] Acid Tablet] DULoxetine [Cymbalta] 30 mg PO BID 10/11/21 10/11/21 Unknown History Ergocalciferol [Vitamin D2] 1 cap PO QWEEK 10/11/21 10/11/21 Unknown History Fluticasone/Salmeterol [Advair 1 puff IH BID 10/11/21 10/11/21 Unknown History Diskus 250-50 mcg] Gabapentin 300 mg PO TID 10/11/21 10/11/21 Unknown History Lacosamide [Vimpat] 20 mg PO BID 10/11/21 10/11/21 Unknown History Metformin HCl [metFORMIN] 1,000 mg PO BID 10/11/21 10/11/21 Unknown History Multivitamin [Multiple Vitamins] 1 each PO DAILY 10/11/21 10/11/21 Unknown History cloZAPine [Clozapine] 50 mg PO HS 10/11/21 10/11/21 Unknown History lamoTRIgine [Lamictal] 50 mg PO BID 10/11/21 10/11/21 Unknown History levETIRAcetam [Keppra TAB] 2 tab PO BID 10/11/21 10/11/21 Unknown History lisinopriL [Lisinopril] 10 mg PO DAILY 10/11/21 10/11/21 Unknown History traZODone [Desyrel] 100 mg PO QHS 10/11/21 10/11/21 Unknown History Active Meds: Active Medications Aripiprazole (Aripiprazole 10 Mg Tab) 10 mg PO [facility] Last Admin: 10/13/21 09:21 Dose: 10 mg Documented by: Atorvastatin Calcium (Atorvastatin 10 Mg Tab) 10 mg PO QHS [facility] Last Admin: 10/12/21 21:43 Dose: 10 mg Documented by: Benztropine Mesylate (Benztropine 1 Mg Tab) 1 mg PO BID [facility] Last Admin: 10/13/21 09:22 Dose: 1 mg Documented by: Cetirizine HCl (Cetirizine 10 Mg Tab) 10 mg PO DAILY [facility] Last Admin: 10/13/21 09:21 Dose: 10 mg Documented by: Cyanocobalamin (Cyanocobalamin (Vit B-12) 1000 Mcg Tab) 1,000 mcg PO QDAY [facility] Last Admin: 10/13/21 09:21 Dose: 1,000 mcg Documented by: Duloxetine HCl (Duloxetine 30 Mg Cap) 30 mg PO BID [facility] Last Admin: 10/13/21 09:22 Dose: 30 mg Documented by: Ergocalciferol (Ergocalciferol (Vit D2) 50,000 Unit Cap) 50,000 unit PO [facility] Hydroxyzine Pamoate (Hydroxyzine Pamoate 50 Mg Cap) 50 mg PO Q6H PRN PRN Reason: Anxiety Last Admin: 10/13/21 09:46 Dose: 50 mg Documented by: Hydroxyzine Pamoate (Hydroxyzine Pamoate 25 Mg Cap) 25 mg PO Q6H PRN PRN Reason: Anxiety Last Admin: 10/12/21 23:33 Dose: 25 mg Documented by: Lamotrigine (Lamotrigine 25 Mg Tab) 50 mg PO BID [facility] Last Admin: 10/13/21 09:22 Dose: 50 mg Documented by: Levetiracetam (Levetiracetam 500 Mg Tab) 1,000 mg PO BID [facility] Last Admin: 10/13/21 09:21 Dose: 1,000 mg Documented by: Metformin HCl (Metformin 500 Mg Tab) 1,000 mg PO BIDDIAB [facility] Last Admin: 10/13/21 09:46 Dose: 1,000 mg Documented by: Multivitamins (Multivitamins ,Therapeutic Tab) 1 each PO DAILY [facility] Last Admin: 10/13/21 09:46 Dose: 1 each Documented by: Trazodone HCl (Trazodone 100 Mg Tab) 100 mg PO QHS [facility] Last Admin: 10/12/21 21:44 Dose: 100 mg Documented by: Results - Results Labs/Vitals: Laboratory Last Values WBC 3.7 K/mm3 (4.5-11.0) L 10/12/21 08:52 RBC 4.41 M/mm3 (3.65-5.03) 10/12/21 08:52 Hgb 12.2 gm/dl (10.1-14.3) 10/12/21 08:52 Hct 38.1 % (30.3-42.9) 10/12/21 08:52 MCV 86 fl (79-97) 10/12/21 08:52 MCH 28 pg (28-32) 10/12/21 08:52 MCHC 32 % (30-34) 10/12/21 08:52 RDW 14.4 % (13.2-15.2) 10/12/21 08:52 Plt Count 172 K/mm3 (140-440) 10/12/21 08:52 Sodium 138 mmol/L (137-145) 10/12/21 08:52 Potassium 4.1 mmol/L (3.6-5.0) 10/12/21 08:52 Chloride 98.3 mmol/L (98-107) 10/12/21 08:52 Carbon Dioxide 24 mmol/L (22-30) 10/12/21 08:52 Anion Gap 20 mmol/L 10/12/21 08:52 BUN 20 mg/dL (7-17) H 10/12/21 08:52 Creatinine 0.8 mg/dL (0.6-1.2) 10/12/21 08:52 Estimated GFR > 60 ml/min 10/12/21 08:52 BUN/Creatinine Ratio 25 % 10/12/21 08:52 Glucose 140 mg/dL (65-100) H 10/12/21 08:52 POC Glucose 77 mg/dL (70-105) 10/13/21 06:34 Calcium 9.0 mg/dL (8.4-10.2) 10/12/21 08:52 Total Bilirubin 0.30 mg/dL (0.1-1.2) 10/12/21 08:52 AST 13 units/L (5-40) 10/12/21 08:52 ALT 14 units/L (7-56) 10/12/21 08:52 Alkaline Phosphatase 114 units/L (35-129) 10/12/21 08:52 Total Protein 7.4 g/dL (6.3-8.2) 10/12/21 08:52 Albumin 4.0 g/dL (3.9-5) 10/12/21 08:52 Albumin/Globulin Ratio 1.2 % 10/12/21 08:52 Triglycerides 101 mg/dL (2-149) 10/12/21 08:52 Cholesterol 191 mg/dL (50-199) 10/12/21 08:52 LDL Cholesterol Direct 108 mg/dL (50-130) 10/12/21 08:52 HDL Cholesterol 67 mg/dL (40-59) H 10/12/21 08:52 Cholesterol/HDL Ratio 2.85 % 10/12/21 08:52 TSH 1.580 mlU/mL (0.270-4.200) 10/12/21 08:52 TSH 1.610 mlU/mL (0.270-4.200) 10/12/21 08:52 Last Vital Signs Temp 97.3 F L 10/12/21 22:00 Pulse 65 10/12/21 22:00 Resp 18 10/12/21 22:00 BP 112/72 10/12/21 22:00 Pulse Ox 98 10/12/21 22:00
--- NOTE | 2021-10-13 12:54 | Progress Note ---
Assessment and Plan Assessment and plan: Patient is a 51-year-old female with past medical history of schizophrenia, PTSD, depression seizure disorder, vitamin D deficiency, vitamin B12 deficiency, asthma, hyperlipidemia, and noninsulin-dependent diabetes who presented for psychiatric inpatient evaluation. Medicine was consulted for medical management. #Suicidal ideation #Suicide attempt #PTSD #Depression -Management per primary #Hypertension -Continue home lisinopril 10 mg daily #Seizure disorder -Continue home lacosamide 20 mg twice daily, lamotrigine 50 mg twice daily, Keppra 2 tabs twice daily #Hyperlipidemia -R continue home Lipitor 10 mg daily #Asthma -Continue home Advair 2 five 0-501 puff twice daily #Thc-[id number] diabetes type 2 -Continue home Metformin 1000 mg twice daily -Blood glucose goal [id number] while inpatient -Continue to monitor #Vitamin B12 deficiency -Continue home vitamin B12 1000 mg daily #Vitamin D deficiency -Continue home ergocalciferol 1 cap weekly #Seasonal allergies #Sinusitis -Continue home cetirizine 10 mg daily #Advanced care planning -Disease education conducted, care plan discussed, diagnoses discussed, prognosis discussed, and patient acknowledges understanding with care plan -time: +20 minutes Signing off today. Please do not hesitate to reach out should any questions arise. Disposition Plan: Continue medical management Total Time Spent with Patient (Minutes): 30 minutes History Interval history: No acute events overnight. Hospitalist Physical - Constitutional Vitals: Temp Pulse Resp BP Pulse Ox 97.3 F L 65 18 112/72 98 10/12/21 22:00 10/12/21 22:00 10/12/21 22:00 10/12/21 22:00 10/12/21 22:00 General appearance: Present: no acute distress, well-nourished - EENT Eyes: Present: PERRL, EOM intact ENT: hearing intact, clear oral mucosa - Neck Neck: Present: supple, normal ROM - Respiratory Respiratory effort: normal Respiratory: bilateral: CTA - Cardiovascular Rhythm: regular Heart Sounds: Present: S1 & S2 - Extremities Extremities: no ischemia, pulses intact, pulses symmetrical, No edema, normal temperature, normal color, Full ROM Peripheral Pulses: within normal limits - Abdominal General gastrointestinal: soft, non-tender, non-distended, normal bowel sounds - Integumentary Integumentary: Present: clear, warm - Psychiatric Psychiatric: cooperative, agitated - Neurologic Neurologic: CNII-XII intact - Allied Health Allied health notes reviewed: nursing Results - Labs CBC & Chem 7: 10/12/21 08:52 10/12/21 08:52 Labs: Laboratory Last Values WBC 3.7 K/mm3 (4.5-11.0) L 10/12/21 08:52 RBC 4.41 M/mm3 (3.65-5.03) 10/12/21 08:52 Hgb 12.2 gm/dl (10.1-14.3) 10/12/21 08:52 Hct 38.1 % (30.3-42.9) 10/12/21 08:52 MCV 86 fl (79-97) 10/12/21 08:52 MCH 28 pg (28-32) 10/12/21 08:52 MCHC 32 % (30-34) 10/12/21 08:52 RDW 14.4 % (13.2-15.2) 10/12/21 08:52 Plt Count 172 K/mm3 (140-440) 10/12/21 08:52 Sodium 138 mmol/L (137-145) 10/12/21 08:52 Potassium 4.1 mmol/L (3.6-5.0) 10/12/21 08:52 Chloride 98.3 mmol/L (98-107) 10/12/21 08:52 Carbon Dioxide 24 mmol/L (22-30) 10/12/21 08:52 Anion Gap 20 mmol/L 10/12/21 08:52 BUN 20 mg/dL (7-17) H 10/12/21 08:52 Creatinine 0.8 mg/dL (0.6-1.2) 10/12/21 08:52 Estimated GFR > 60 ml/min 10/12/21 08:52 BUN/Creatinine Ratio 25 % 10/12/21 08:52 Glucose 140 mg/dL (65-100) H 10/12/21 08:52 POC Glucose 77 mg/dL (70-105) 10/13/21 06:34 Calcium 9.0 mg/dL (8.4-10.2) 10/12/21 08:52 Total Bilirubin 0.30 mg/dL (0.1-1.2) 10/12/21 08:52 AST 13 units/L (5-40) 10/12/21 08:52 ALT 14 units/L (7-56) 10/12/21 08:52 Alkaline Phosphatase 114 units/L (35-129) 10/12/21 08:52 Total Protein 7.4 g/dL (6.3-8.2) 10/12/21 08:52 Albumin 4.0 g/dL (3.9-5) 10/12/21 08:52 Albumin/Globulin Ratio 1.2 % 10/12/21 08:52 Triglycerides 101 mg/dL (2-149) 10/12/21 08:52 Cholesterol 191 mg/dL (50-199) 10/12/21 08:52 LDL Cholesterol Direct 108 mg/dL (50-130) 10/12/21 08:52 HDL Cholesterol 67 mg/dL (40-59) H 10/12/21 08:52 Cholesterol/HDL Ratio 2.85 % 10/12/21 08:52 TSH 1.580 mlU/mL (0.270-4.200) 10/12/21 08:52 TSH 1.610 mlU/mL (0.270-4.200) 10/12/21 08:52 Forman/IV: Voiding Method Toilet Active Medications - Current Medications Current Medications: Generic Name Dose Route Start Last Admin Trade Name Freq PRN Reason Stop Dose Admin Aripiprazole 10 mg 10/11/21 10:00 10/13/21 09:21 Aripiprazole 10 Mg Tab PO 10 mg PC ANA Administration Atorvastatin Calcium 10 mg 10/11/21 22:00 10/12/21 21:43 Atorvastatin 10 Mg Tab PO 10 mg QHS ANA Administration Benztropine Mesylate 1 mg 10/11/21 10:00 10/13/21 09:22 Benztropine 1 Mg Tab PO 1 mg BID ANA Administration Cetirizine HCl 10 mg 10/11/21 11:00 10/13/21 09:21 Cetirizine 10 Mg Tab PO 10 mg DAILY ANA Administration Cyanocobalamin 1,000 mcg 10/11/21 11:00 10/13/21 09:21 Cyanocobalamin (Vit B-12) 1000 Mcg Tab PO 1,000 mcg QDAY ANA Administration Duloxetine HCl 30 mg 10/11/21 11:00 10/13/21 09:22 Duloxetine 30 Mg Cap PO 30 mg BID ANA Administration Ergocalciferol 50,000 unit 10/17/21 10:00 Ergocalciferol (Vit D2) 50,000 Unit Cap PO Tu ANA Hydroxyzine Pamoate 50 mg 10/13/21 13:00 Hydroxyzine Pamoate 50 Mg Cap PO Q6H PRN Anxiety Hydroxyzine Pamoate 25 mg 10/13/21 13:00 Hydroxyzine Pamoate 25 Mg Cap PO Q6H PRN Anxiety Lamotrigine 50 mg 10/11/21 11:00 10/13/21 09:22 Lamotrigine 25 Mg Tab PO 50 mg BID ANA Administration Levetiracetam 1,000 mg 10/11/21 11:00 10/13/21 09:21 Levetiracetam 500 Mg Tab PO 1,000 mg BID ANA Administration Metformin HCl 1,000 mg 10/11/21 11:30 10/13/21 09:46 Metformin 500 Mg Tab PO 1,000 mg BIDDIAB ANA Administration Multivitamins 1 each 10/11/21 11:00 10/13/21 09:46 Multivitamins ,Therapeutic Tab PO 1 each DAILY ANA Administration Trazodone HCl 100 mg 10/11/21 22:00 10/12/21 21:44 Trazodone 100 Mg Tab PO 100 mg QHS ANA Administration
[2021-10-13] MEDS ORDERED: hydrOXYzine PAMOATE 25 MG CAP PO PRN (13:00)
[2021-10-13] MEDS ORDERED: CYCLOBENZAPRINE 10 MG TAB PO PRN (13:53)
[2021-10-13] MEDS: traZODone 100 MG TAB PO SCH (22:43)
[2021-10-14 08:49] VITALS: BP 108/69
--- NOTE | 2021-10-14 09:35 | Discharge Summary ---
Providers - Providers Date of Admission: 10/10/21 22:13 Date of discharge: 10/14/21 Attending physician: CARMEN WAGONER MD 10/10/21 17:37 Consult to Physician [CONS] Routine Comment: Consulting Provider: TEJ MARI Physician Instructions: Reason For Exam: Medical Management Primary care physician: POT PUNCHER Hospitalization Reason for admission: SI Admitting Diagnosis: F33.9 - MAJOR DEPRESSIVE DISORDER, RECURRENT, UNSPECIFIED Condition: Stable Hospital course: The patient was provided inpatient psychiatric treatment with safe and supportive care, medication adjustment, adverse effect monitoring, medical evaluations, medical treatments, assessment and psycho-education. The patient's mood, cognition, behavior, moral support are improved and stabilized. St the time of discharge, the patient had no endangering behavior and no debilitating adverse effects. The patient agreed on potential consequences of no treatment and gave informed consent. 10/14 The patient was seen today. She says she pissed because she didn't get her meds this morning. I assured the patient she would get her meds. She was okay then. She denies SI/HI. She also denies hallucinations. The patient says she's ready to go home so she can get back to normal. Disposition: 01 HOME / SELF CARE / HOMELESS Time spent for discharge: 35 Allergies/Adverse Reactions: Allergies hydromorphone [From Dilaudid] Adverse Reaction (Verified 10/10/21 17:32) Unknown lorazepam [From Ativan] Adverse Reaction (Verified 10/10/21 17:32) Unknown morphine Adverse Reaction (Verified 10/10/21 17:32) Unknown Vital Signs: Last Vital Signs Temp 98.9 F 10/14/21 08:48 Pulse 78 10/14/21 08:48 Resp 18 10/14/21 08:48 BP 108/69 10/14/21 08:48 Pulse Ox 100 10/14/21 08:48 Last Lab: Laboratory Last Values WBC 3.7 K/mm3 (4.5-11.0) L 10/12/21 08:52 RBC 4.41 M/mm3 (3.65-5.03) 10/12/21 08:52 Hgb 12.2 gm/dl (10.1-14.3) 10/12/21 08:52 Hct 38.1 % (30.3-42.9) 10/12/21 08:52 MCV 86 fl (79-97) 10/12/21 08:52 MCH 28 pg (28-32) 10/12/21 08:52 MCHC 32 % (30-34) 10/12/21 08:52 RDW 14.4 % (13.2-15.2) 10/12/21 08:52 Plt Count 172 K/mm3 (140-440) 10/12/21 08:52 Sodium 138 mmol/L (137-145) 10/12/21 08:52 Potassium 4.1 mmol/L (3.6-5.0) 10/12/21 08:52 Chloride 98.3 mmol/L (98-107) 10/12/21 08:52 Carbon Dioxide 24 mmol/L (22-30) 10/12/21 08:52 Anion Gap 20 mmol/L 10/12/21 08:52 BUN 20 mg/dL (7-17) H 10/12/21 08:52 Creatinine 0.8 mg/dL (0.6-1.2) 10/12/21 08:52 Estimated GFR > 60 ml/min 10/12/21 08:52 BUN/Creatinine Ratio 25 % 10/12/21 08:52 Glucose 140 mg/dL (65-100) H 10/12/21 08:52 POC Glucose 109 mg/dL (70-105) H 10/14/21 09:03 Calcium 9.0 mg/dL (8.4-10.2) 10/12/21 08:52 Total Bilirubin 0.30 mg/dL (0.1-1.2) 10/12/21 08:52 AST 13 units/L (5-40) 10/12/21 08:52 ALT 14 units/L (7-56) 10/12/21 08:52 Alkaline Phosphatase 114 units/L (35-129) 10/12/21 08:52 Total Protein 7.4 g/dL (6.3-8.2) 10/12/21 08:52 Albumin 4.0 g/dL (3.9-5) 10/12/21 08:52 Albumin/Globulin Ratio 1.2 % 10/12/21 08:52 Triglycerides 101 mg/dL (2-149) 10/12/21 08:52 Cholesterol 191 mg/dL (50-199) 10/12/21 08:52 LDL Cholesterol Direct 108 mg/dL (50-130) 10/12/21 08:52 HDL Cholesterol 67 mg/dL (40-59) H 10/12/21 08:52 Cholesterol/HDL Ratio 2.85 % 10/12/21 08:52 TSH 1.580 mlU/mL (0.270-4.200) 10/12/21 08:52 TSH 1.610 mlU/mL (0.270-4.200) 10/12/21 08:52 Core Measure Documentation - Palliative Care Palliative Care/ Comfort Measures: Not Applicable - Core Measures Any of the following diagnoses?: none Exam - Constitutional Vitals: Temp Pulse Resp BP Pulse Ox 98.9 F 78 18 108/69 100 10/14/21 08:48 10/14/21 08:48 10/14/21 08:48 10/14/21 08:48 10/14/21 08:48 General appearance: Present: no acute distress - EENT Eyes: Present: PERRL, EOM intact ENT: hearing intact, clear oral mucosa - Neck Neck: Present: supple, normal ROM - Respiratory Respiratory effort: normal Plan Activity: advance as tolerated Weight Bearing Status: Weight Bear as Tolerated Care Plan Goals: maintain good and stable mental health Plan of Treatment: The patient should be compliant with medications, not to use drugs, and not to drink alcohol. The patient understands that if suicidal ideas, homicidal ideas or any endangering feeling arise, the patient should seek assistance including, but not limited to crisis hotline, and emergency room. Assessment: MDD Follow up with: PRIMARY CARE, [Primary Care Provider] - 7 Days Prescriptions: traZODone [Desyrel] 100 mg PO QHS #30 ARIPiprazole [Aripiprazole] 10 mg PO PC #30 DULoxetine [Cymbalta] 30 mg PO BID #60 cap hydrOXYzine PAMOATE [Vistaril] 50 mg PO Q6H PRN #120 capsule PRN Reason: Anxiety
[2021-10-14] MEDS: lamoTRIgine 25 MG TAB PO SCH (10:51)
[2021-10-14] MEDS: DULoxetine 30 MG CAP PO SCH (10:51)
[2021-10-14] MEDS: levETIRAcetam 500 MG TAB PO SCH (10:51)
[2021-10-14] MEDS: metFORMIN 500 MG TAB PO SCH ×2 (10:52→11:02)
[2021-10-14] MEDS: CYANOCOBALAMIN (VIT B-12) 1000 MCG TAB PO SCH (10:52)
[2021-10-14] MEDS: CETIRIZINE 10 MG TAB PO SCH (10:52)
[2021-10-14] MEDS: BENZTROPINE 1 MG TAB PO SCH (10:52)
[2021-10-14] MEDS: MULTIVITAMINS ,THERAPEUTIC TAB PO SCH (10:52)
[2021-10-14] MEDS: ARIPiprazole 10 MG TAB PO SCH (10:57)
[2021-10-17] MEDS ORDERED: ERGOCALCIFEROL (VIT D2) 50,000 UNIT CAP PO SCH (10:00)
== END 2021-10-14 15:20 | disposition home or self-care (01) | DRG 885 ==
LOC: UNDOADMIN 16:55 → 3A 16:55 → 5A 22:13
PROVIDERS: ADMIT Psychiatry & Neurology Psychiatry; ATTEND Psychiatry & Neurology Psychiatry
DX: F33.9 Major depressive disorder, recurrent, unspecified (principal); F25.9 Schizoaffective disorder, unspecified; R45.851 Suicidal ideations; J45.909 Unspecified asthma, uncomplicated; E78.5 Hyperlipidemia, unspecified; E11.9 Type 2 diabetes mellitus without complications; E53.8 Deficiency of other specified B group vitamins; E55.9 Vitamin D deficiency, unspecified; J32.9 Chronic sinusitis, unspecified; Z88.5 Allergy status to narcotic agent; Z88.8 Allergy status to other drugs, medicaments and biological substances; G40.909 Epilepsy, unspecified, not intractable, without status epilepticus
CPT/HCPCS: 36415; 80053; 80061; 82962; 84443; 85027; 90686; G0378; J3490; Q0177